=== PATIENT | male | born 1945 | race Caucasian/White ===

== ENCOUNTER → 2019-07-18 | Outpatient (CLI) | payer MEDICARE ==
--- NOTE | 2019-07-18 15:15 | CT ---
EXAMINATION TYPE: CT hip LT wo con DATE OF EXAM: 07/18/2019 COMPARISON: None HISTORY: Osteoarthritis CT DLP: 904.10 mGycm Automated exposure control for dose reduction was used. CONTRAST: None FINDINGS: Axial images were obtained at 3 mm thick sections through the left hip. Reconstructed images in the c oronal and sagittal plane reviewed on the computer. No acute fractures are evident. Femoral head articulates with the acetabulum. There is loss of the sam int space. Small subchondral cysts may be present within the acetabulum. Femoral head spurring is not ed. 3-D reconstructed images performed separately by the technologist are reviewed. IMPRESSION: 1. NO ACUTE FRACTURES LEFT HIP. 2. MODERATE OSTEOARTHRITIC DEGENERATIVE CHANGES LEFT HIP
== END ==
LOC: RADCTMAIN 13:17
PROVIDERS: ATTEND Orthopaedic Surgery
DX: M16.12 Unilateral primary osteoarthritis, left hip (principal)